=== PATIENT | male | born 1975 | race Caucasian/White ===

== ENCOUNTER 2016-11-01 19:11 | Emergency (ER) | payer SELFPAY ==
--- NOTE | 2016-11-01 19:24 | Emergency Department Record ---
History of Present Illness - General Chief complaint: Edema Stated complaint: LEFT HAND SWOLLEN Time Seen by Provider: 11/01/16 19:22 Source: Patient Mode of Arrival: Ambulatory Limitations: No limitations - History of Present Illness Initial comments: 41 yo male presents to ED with a CC of redness and swelling to the dorsum of the left hand for the past several days. Patient denies fevers, chills, or recent illness, but does report decreased appetite. Patient denies cough, abdominal pain, nausea, or vomiting symptoms. Patient denies health problems at his baseline. MD Complaint: Extremity pain, Extremity swelling Onset/Timin -: Days(s) Location: Left, Hand History of Same: No -: Yes Arthralgia Radiation: None Quality: Aching Consistency: Constant Improves with: Nothing Worsens with: Nothing Associated Symptoms: Other (decreased appetite) - Related Data Previous Rx's Medication Instructions Recorded Clindamycin HCl [Cleocin HCl] 300 mg PO QID #40 capsule 11/01/16 Allergies Allergy/AdvReac Type Severity Reaction Status Date / Time No Known Drug Allergies Allergy Verified 06/18/16 08:05 Review of Systems Constitutional: Denies: Chills, Fever, Malaise, Night sweats Eyes: Denies: Eye discharge, Eye pain ENT: Denies: Congestion, Ear pain, Epistaxis Respiratory: Denies: Cough, Dyspnea, Hemoptysis, Stridor Cardiovascular: Denies: Chest pain, Dyspnea on exertion, Palpitations Endocrine: Denies: Fatigue, Heat or cold intolerance Gastrointestinal: Denies: Abdominal pain, Nausea, Vomiting Genitourinary: Denies: Incontinence, Retention Musculoskeletal: Reports: Arthralgia. Denies: Back pain, Gout, Joint swelling Skin: Reports: Change in color (redness). Denies: Bruising, Change in hair/ nails, Rash Neurological: Denies: Abnormal gait, Confusion, Headache, Seizure Psychiatric: Denies: Anxiety Hematological/Lymphatic: Denies: Anemia, Blood Clots Past Medical History - SOCIAL HISTORY Smoking Status: Never smoker Drug Use: None - RESPIRATORY Hx Respiratory Disorders: No - CARDIOVASCULAR Hx Cardio Disorders: No - NEURO Hx Neuro Disorders: No - GI Hx GI Disorders: No - Hx Genitourinary Disorders: No - ENDOCRINE Hx Endocrine Disorders: No - MUSCULOSKELETAL Hx Musculoskeletal Disorders: No - PSYCH Hx Psych Problems: No - HEMATOLOGY/ONCOLOGY Hx Hematology/Oncology Disorders: No Family Medical History Hx Cancer: Grandparents Hx Diabetes: Father, Mother Hx Heart Disease: Father Hx Kidney Disease: Father Physical Exam - General General Appearance: Alert, Oriented x3, Cooperative, No acute distress Limitations: No limitations - Head Head exam: Atraumatic, Normocephalic, Normal inspection Head exam detail: negative: Abrasion, Contusion, Isidro's sign, General tenderness, Hematoma, Laceration - Eye Eye exam: Normal appearance. negative: Conjunctival injection, Periorbital swelling, Periorbital tenderness, Scleral icterus - ENT Ear exam: negative: Auricular hematoma, Auricular trauma Nasal Exam: negative: Active bleeding, Discharge, Dried blood, Foreign body Mouth exam: negative: Drooling, Laceration, Muffled voice, Tongue elevation - Neck Neck exam: Normal inspection. negative: Meningismus, Tenderness - Respiratory Respiratory exam: Normal lung sounds bilaterally. negative: Rales, Respiratory distress, Rhonchi, Stridor - Cardiovascular Cardiovascular Exam: Regular rate, Normal rhythm, Normal heart sounds - GI/Abdominal GI/Abdominal exam: Soft. negative: Rebound, Rigid, Tenderness - Rectal Rectal exam: Deferred - exam: Deferred - Extremities Extremities exam: Tenderness, Other (Mild TTP and erythema to the dorsal aspect of the left hand, warm to palpation, no fluctuation or induration present, no evidence for abscess.). negative: Calf tenderness, Pedal edema - Back Back exam: Denies: CVA tenderness (R), CVA tenderness (L), Rash noted - Neurological Neurological exam: Alert, Normal gait, Oriented X3 - Psychiatric Psychiatric exam: Normal affect, Normal mood - Skin Skin exam: Erythema. negative: Abrasion Type of lesion: negative: abrasion Course Vital Signs 11/01/16 19:17 Temperature 99.3 F Pulse Rate [ 121 H Pulse Ox Probe] Respiratory 20 Rate Blood Pressure 130/84 [Right Arm] Pulse Ox 95 - Reevaluation(s) Reevaluation #1: 11/01/16 19:29 Symptoms appear c/w mild cellulitis, will treat for 10 days with Clindamycin. Repeat pulse 108 prior to discharge. Patient appears stable for outpatient treatment at this time. 11/01/16 20:39 Disposition Disposition: Discharge Clinical Impression: Cellulitis of left hand Disposition: Home, Self-Care Condition: (2) Stable Instructions: Cellulitis (ED) Additional Instructions: Return to ED if your symptoms worsen or if you have any concerns. Clindamycin as directed. Follow-up with your family doctor in 3-5 days to ensure your hand infection is improving. Prescriptions: Clindamycin HCl [Cleocin HCl] 300 mg PO QID #40 capsule Forms: Patient Portal Access Time of Disposition: 19:23
[2016-11-01] MEDS ORDERED: CLINDAMYCIN 150 MG CAP PO ONE (19:46)
== END 2016-11-01 19:48 | disposition home or self-care (01) ==
LOC: ER 19:11
DX: L03.114 Cellulitis of left upper limb (principal)
CPT/HCPCS: 99282

== ENCOUNTER 2017-03-30 14:11 | Emergency (ER) | payer SELFPAY ==
--- NOTE | 2017-03-30 14:38 | Emergency Department Record ---
History of Present Illness - General Chief complaint: Extremity Problem Stated complaint: RT FOREARM SWELLING Time Seen by Provider: 03/30/17 14:27 Source: Patient Mode of Arrival: Ambulatory Limitations: No limitations - History of Present Illness Initial comments: The patient is here due to a possible R forearm infection which has been present for 3-4 days. He had a pimple to the area and tried to pop it and now the area is swollen and tender. 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 He also states he did hit the area at work and it could be a bad bruise from the trauma also. MD Complaint: Extremity pain, Extremity swelling Onset/Timin -: Days(s) Location: Right, Forearm History of Same: Yes Radiation: Distal Severity scale (1-10): 5 Quality: Aching Consistency: Constant Improves with: Nothing Worsens with: Nothing Associated Symptoms: Denies other symptoms - Related Data Previous Rx's Medication Instructions Recorded Cephalexin [Keflex] 500 mg PO QID #28 cap 03/30/17 Sulfamethoxazole/Trimethoprim 1 tab PO BID #14 tab 03/30/17 [Bactrim Ds] Allergies Allergy/AdvReac Type Severity Reaction Status Date / Time No Known Drug Allergies Allergy Verified 03/30/17 14:25 Travel Screening - Travel/Exposure Within Last 30 Days Have you traveled within the last 30 days?: No Past Medical History - SOCIAL HISTORY Smoking Status: Never smoker Alcohol Use: Rare Drug Use: None - RESPIRATORY Hx Respiratory Disorders: No - CARDIOVASCULAR Hx Cardio Disorders: No - NEURO Hx Neuro Disorders: No - GI Hx GI Disorders: No - Hx Genitourinary Disorders: No - ENDOCRINE Hx Endocrine Disorders: No - MUSCULOSKELETAL Hx Musculoskeletal Disorders: No - PSYCH Hx Psych Problems: No - HEMATOLOGY/ONCOLOGY Hx Hematology/Oncology Disorders: No Family Medical History Any Significant Family History?: Yes Hx Cancer: Grandparents Hx Diabetes: Father, Mother Hx Heart Disease: Father Hx Kidney Disease: Father Physical Exam - General General Appearance: Alert, Cooperative, No acute distress - Head Head exam: Atraumatic, Normocephalic - Extremities Extremities exam: Full ROM, Tenderness (There is tenderness over the swollen area only.), Other (The R arm is NVI.). negative: Normal inspection (There is a 3x3 circular area of swelling to the R forearm. There is no surrounding cellulitis. The area is very minimally warm with very minimal erythema present.) Image of Full Body: 1 - 3x3 cm area of abscess. Course Vital Signs 03/30/17 14:19 Temperature 97.8 F Pulse Rate 108 H Respiratory 20 Rate Blood Pressure 156/94 Pulse Ox 99 - Reevaluation(s) Reevaluation #1: I discussed watching the area and using warm compresses on it with oral Abx's but the patient was adamant that I try to open up the area. Due to that fact I did attempt to open the area. Procedure note: The area was cleansed with betadine and anesth. with 5 cc's Lido 1%. The midpoint of the swelling was incised with a # 11 blade but no purulence was expressed. The area was then probed with sterile forceps and no abscess cavity was found. 03/30/17 15:21 03/30/17 15:59 Reevaluation #2: The lab work and xrays are all neg. I believe the swelling could just be due to a hematoma but due to the confusing nature of the problem will place the patient on oral Abx's. 03/30/17 16:00 Medical Decision Making - Data Complexity MDM Data: Labs Ordered and/or Reviewed, X-Ray Ordered and/or Reviewed - Lab Data Result diagrams: 03/30/17 15:20 03/30/17 15:20 - Radiology Data Radiology results: Report reviewed (R forearm: Soft tissue swelling. No gas or foreign body.) Disposition Disposition: Discharge Clinical Impression: Forearm swelling Disposition: Home, Self-Care Condition: (1) Good Instructions: Hematoma (ED) Additional Instructions: Please use OTC pain medicines as needed and keep the area dressed until healed. Use ice to the area when possible while awake. Please take the Keflex and Bactrim as directed. Follow up with your PCP if not healed in 3 days and return to the ER for any increased swelling, fever, increased pain or redness. Prescriptions: Cephalexin [Keflex] 500 mg PO QID #28 cap Sulfamethoxazole/Trimethoprim [Bactrim Ds] 1 tab PO BID #14 tab Forms: Patient Portal Access Time of Disposition: 16:03 Quality - Quality Measures Quality Measures: N/A - Blood Pressure Screening View Details: Yes Does Patient Have Any of the Following: No Blood Pressure Classification: Hypertensive Reading Systolic Measurement: 137 Diastolic Measurement: 92 Screening for High Blood Pressure: < Pre-Hypertensive BP, F/U Documented > [ G8950] Pre-Hypertensive Follow-up Interventions: Referral to alternative/primary care provider.
[2017-03-30] MEDS ORDERED: CLINDAMYCIN 150 MG CAP PO ONE (15:23)
[2017-03-30 15:32] LABS: BASO % 0.6 % (0-6); EOS % 3.3 % (0-6); GRAN % 42.2 % (47-80); HEMATOCRIT 39.8 % (42.0-52.0); HEMOGLOBIN 13.4 gm/dl (14.0-18.0); LYMPH % 43.3 % (16-45); MEAN CELL VOLUME 88.6 fl (81-97); MEAN CORPUSCULAR HEMOGLOBIN 29.8 pg (27-33); MEAN CORPUSCULAR HGB CONC 33.7 g/dl (32-36); MEAN PLATELET VOLUME 8.9 fl (7.4-10.4); MONO % 10.6 % (0-9); PLATELET COUNT 306 K/uL (130-400); RED BLOOD COUNT 4.49 M/uL (4.40-5.70); RED CELL DISTRIBUTION WIDTH 13.4 % (11.5-14.5); WHITE BLOOD COUNT W/O DIFF 7.2 K/uL (4.2-12.2)
[2017-03-30 15:44] LABS: BLOOD UREA NITROGEN 10 mg/dL (9-20); C-REACTIVE PROTEIN 0.9 mg/dL (0.0-0.9); CREATININE 1.2 mg/dL (0.66-1.25); EST GLOMERULAR FILTRATION RATE > 60 ml/min; GLUCOSE,RANDOM 116 mg/dL (70-110)
--- NOTE | 2017-03-31 07:42 | RADIOLOGY REPORT ---
EXAM: RIGHT FOREARM, AP AND LATERAL VIEWS HISTORY: SWELLING IN RIGHT FOREARM AT SITE OF PREVIOUS FLUID FILLED BUMP WHICH PATIENT "POPPED". TECHNIQUE: AP and lateral views of the right forearm were obtained. Comparison: Three views of the right hand dated 10/15/15. Encounter: Initial. FINDINGS: There is normal bone mineralization. No acute fracture, dislocation , or destructive bone lesion is seen. There are degenerative changes of the elbow most pronounced in the medial compartment where they are moderate in degree. The articular relations are otherwise maintained. No anterior nor posterior fat pad sign. There is anterior soft tissue swelling proximally. No foreign body nor subcutaneous emphysema. IMPRESSION: 1. NO ACUTE BONE NOR JOINT ABNORMALITY. 2. DEGENERATIVE CHANGES OF THE RIGHT ELBOW. 3. FOCAL SOFT TISSUE SWELLING ANTERIORLY AND PROXIMALLY WITHOUT EVIDENCE OF FOREIGN BODY OR SUBCUTANEOUS EMPHYSEMA. JOB NUMBER: [id number] MTDD
== END 2017-03-30 16:12 | disposition home or self-care (01) ==
LOC: ER 14:11
DX: R22.31 Localized swelling, mass and lump, right upper limb (principal)
CPT/HCPCS: 10060; 80048; 85025; 86140; 99283

== ENCOUNTER 2017-12-31 23:46 | Emergency (ER) | payer SELFPAY ==
[2018-01-01] MEDS ORDERED: CLINDAMYCIN 600MG/50ML PREMIX 600 MG/50 ML BAG IVPB ONE (00:06)
--- NOTE | 2018-01-01 00:10 | Emergency Department Record ---
History of Present Illness - General Chief complaint: Abscess Stated complaint: ABSCESS Time Seen by Provider: 12/31/17 23:53 Source: Patient Mode of Arrival: Ambulatory Limitations: No limitations - History of Present Illness Initial comments: The patient is here due to a L forearm rash, swelling, and pain for 5 days. He did get a tattoo over that area about 2 weeks ago. The patient first had areas of pustules to the forearm and now one of them has become more swollen and is draining. There is a mild red streak up the forearm to the elbow. The patient does have a hx of MRSA a couple of years ago. MD complaint: Abscess/boil, Rash Onset/Timin -: Days(s) Hx Tetanus Toxoid Vaccination: Yes Year of Tetanus Vaccination: 2010 [place] [facility] [place]ity scale (1-10): 6 Quality: Other Consistency: Constant Improves with: Rest Worsens with: Palpation Context: None Treatments Prior to Arrival: Attempted to drain pus at home, OTC topical medication - Related Data Previous Rx's Medication Instructions Recorded Clindamycin HCl [Cleocin HCl] 300 mg PO QID #28 capsule 01/01/18 Allergies Allergy/AdvReac Type Severity Reaction Status Date / Time No Known Drug Allergies Allergy Verified 03/30/17 14:25 Travel Screening - Travel/Exposure Within Last 30 Days Have you traveled within the last 30 days?: No - Travel Symptoms Symptom Screening: None Review of Systems Constitutional: Denies: Chills, Fever Eyes: Denies: Eye discharge Past Medical History - SOCIAL HISTORY Smoking Status: Never smoker - RESPIRATORY Hx Respiratory Disorders: No - CARDIOVASCULAR Hx Cardio Disorders: No - NEURO Hx Neuro Disorders: No - GI Hx GI Disorders: No - Hx Genitourinary Disorders: No - ENDOCRINE Hx Endocrine Disorders: No - MUSCULOSKELETAL Hx Musculoskeletal Disorders: No - PSYCH Hx Psych Problems: No - HEMATOLOGY/ONCOLOGY Hx Hematology/Oncology Disorders: No Family Medical History Any Significant Family History?: Yes Hx Cancer: Grandparents Hx Diabetes: Father, Mother Hx Heart Disease: Father Hx Kidney Disease: Father Physical Exam - General General Appearance: Alert, Oriented x3, Cooperative, No acute distress - Head Head exam: Atraumatic, Normocephalic, Normal inspection - Eye Eye exam: Normal appearance, PERRL - Neck Neck exam: Normal inspection, Full ROM. negative: Tenderness - Respiratory Respiratory exam: Normal lung sounds bilaterally. negative: Respiratory distress - Cardiovascular Cardiovascular Exam: Regular rate, Normal rhythm, Normal heart sounds - Extremities Extremities exam: negative: Normal inspection (There is an area of slight swelling and erythema to the medial distal forearm. There is a central lesion that is draining a small amount of purulent material. There is no fluctuance or palpable abscess. ) Image of Full Body: 1 - Area of erythema, warmth and tenderness. - Neurological Neurological exam: Alert. negative: Motor sensory deficit Course Vital Signs 12/31/17 23:51 Temperature 98.3 F Pulse Rate [ 97 H Pulse Ox Probe] Respiratory 20 Rate Blood Pressure 145/94 [Right Arm] Pulse Ox 100 Disposition Disposition: Discharge Clinical Impression: Cellulitis of arm, left Disposition: Home, Self-Care Condition: (2) Stable Instructions: Cellulitis (ED) Additional Instructions: PLease continue the Clindamycin and use warm compresses to the area. Take Tylenol or Motrin for pain. Please see your family doctor next week for recheck. Return to the ER for any worsening symptoms, pain, redness, or swelling. Prescriptions: Clindamycin HCl [Cleocin HCl] 300 mg PO QID #28 capsule Forms: Patient Portal Access Time of Disposition: 00:11 Quality - Quality Measures Quality Measures: N/A - Blood Pressure Screening View Details: Yes Does Patient Have Any of the Following: No Blood Pressure Classification: Pre-Hypertensive BP Reading Systolic Measurement: 133 Diastolic Measurement: 81 Screening for High Blood Pressure: < Pre-Hypertensive BP, F/U Documented > [ G8950] Pre-Hypertensive Follow-up Interventions: Referral to alternative/primary care provider.
[2018-01-01] MEDS ORDERED: IBUPROFEN 600 MG TABLET PO ONE (00:11)
== END 2018-01-01 01:01 | disposition home or self-care (01) ==
LOC: ER 23:46
DX: L03.114 Cellulitis of left upper limb (principal)
CPT/HCPCS: 96365; 99284

== ENCOUNTER 2018-12-20 06:27 | Emergency (ER) | payer SELFPAY ==
--- NOTE | 2018-12-20 06:47 | Emergency Department Record ---
History of Present Illness - General Chief complaint: Extremity Problem Stated complaint: LEFT WRIST PAIN Time Seen by Provider: 12/20/18 06:41 Source: Patient Mode of Arrival: Ambulatory Limitations: No limitations - History of Present Illness Initial comments: 43 yo male presents to ED for evaluation of left wrist pain for the past 3 weeks, denies recent injury. Patient reports previous fracture to the left wrist as a child with "chips of bone removed", denies history of hardware placement/removal. Patient denies fevers, chills, or redness to the affected wrist. Patient reports taking ibuprofen for his symptoms with little improvement. Patient also reports that he is concerned about possible GOUT. MD Complaint: Joint pain Onset/Timin -: Week(s) Location: Left, Other History of Same: No Severity scale (1-10): 8 Quality: Aching Consistency: Constant Improves with: Nothing Worsens with: Palpation, Other Associated Symptoms: Denies other symptoms - Related Data Allergies Allergy/AdvReac Type Severity Reaction Status Date / Time No Known Drug Allergies Allergy Verified 03/30/17 14:25 Travel Screening - Travel/Exposure Within Last 30 Days Have you traveled within the last 30 days?: No Review of Systems Constitutional: Denies: Chills, Fever, Malaise, Night sweats Eyes: Denies: Eye discharge, Eye pain ENT: Denies: Congestion, Ear pain, Epistaxis Respiratory: Denies: Cough, Dyspnea Cardiovascular: Denies: Chest pain, Dyspnea on exertion Endocrine: Denies: Fatigue, Heat or cold intolerance Gastrointestinal: Denies: Abdominal pain, Nausea, Vomiting Genitourinary: Denies: Incontinence, Retention Musculoskeletal: Reports: Arthralgia. Denies: Back pain, Joint swelling Skin: Denies: Bruising, Change in color Neurological: Denies: Abnormal gait, Confusion, Headache, Seizure Psychiatric: Denies: Anxiety Hematological/Lymphatic: Denies: Anemia, Blood Clots Past Medical History - SOCIAL HISTORY Smoking Status: Never smoker Alcohol Use: None Drug Use: None - RESPIRATORY Hx Respiratory Disorders: No - CARDIOVASCULAR Hx Cardio Disorders: No - NEURO Hx Neuro Disorders: No - GI Hx GI Disorders: No - Hx Genitourinary Disorders: No - ENDOCRINE Hx Endocrine Disorders: No - MUSCULOSKELETAL Hx Musculoskeletal Disorders: No - PSYCH Hx Psych Problems: No - HEMATOLOGY/ONCOLOGY Hx Hematology/Oncology Disorders: No Family Medical History Any Significant Family History?: Yes Hx Cancer: Grandparents Hx Diabetes: Father, Mother Hx Heart Disease: Father Hx Kidney Disease: Father Physical Exam - General General Appearance: Alert, Oriented x3, Cooperative, Mild distress Limitations: No limitations - Head Head exam: Atraumatic, Normocephalic, Normal inspection Head exam detail: negative: Abrasion, Contusion, Isidro's sign, General tenderness, Hematoma, Laceration - Eye Eye exam: Normal appearance. negative: Conjunctival injection, Periorbital swelling, Periorbital tenderness, Scleral icterus - ENT Ear exam: negative: Auricular hematoma, Auricular trauma Nasal Exam: negative: Active bleeding, Discharge, Dried blood, Foreign body Mouth exam: negative: Drooling, Laceration, Muffled voice, Tongue elevation - Neck Neck exam: Normal inspection. negative: Meningismus, Tenderness - Respiratory Respiratory exam: Normal lung sounds bilaterally. negative: Rales, Respiratory distress, Rhonchi, Stridor - Cardiovascular Cardiovascular Exam: Regular rate, Normal rhythm, Normal heart sounds Peripheral Pulses: 3+: Radial (L) - GI/Abdominal GI/Abdominal exam: Soft. negative: Rebound, Rigid, Tenderness - Rectal Rectal exam: Deferred - exam: Deferred - Extremities Extremities exam: Tenderness, Other (Mild TTP over the fascia retinaculum of the left wrist, no erythema or clinial signs of infection, strong distal radial pulse, compartments of the left forearm are soft on examination.). negative: Calf tenderness, Pedal edema - Back Back exam: Denies: CVA tenderness (R), CVA tenderness (L) - Neurological Neurological exam: Alert, Normal gait, Oriented X3 - Psychiatric Psychiatric exam: Normal affect, Normal mood - Skin Skin exam: Normal color. negative: Abrasion Type of lesion: negative: abrasion Course Vital Signs 12/20/18 06:31 Temperature 98.0 F Pulse Rate 87 Respiratory 20 Rate Blood Pressure 159/100 Pulse Ox 100 - Reevaluation(s) Reevaluation #1: 12/20/18 06:52 Left wrist: Mild STS present Mild degenerative changes No acute process Patient was updated on his radiograph results, will place in velcro wrist splint Symptomatic care including Ibuprofen, ice were given as well for possible CTS Patient was instructed to follow-up with his PCP for further testing for possible CTS as well. Disposition Disposition: Discharge Clinical Impression: Wrist pain, left Disposition: Home, Self-Care Condition: (2) Stable Instructions: Wrist Injury (ED) Additional Instructions: Return to ED if your symptoms worsen or if you have any concerns. Ibuprofen, ice, wrist splint as directed. Follow-up with your family doctor in 3-5 days as directed for further evaluation for possible carpal tunnel syndrome. Forms: Patient Portal Access Time of Disposition: 06:47 Quality - Quality Measures Quality Measures: N/A - Blood Pressure Screening Does Patient Have Any of the Following: No Blood Pressure Classification: Hypertensive Reading Systolic Measurement: 159 Diastolic Measurement: 100 Screening for High Blood Pressure: < First Hypertensive BP, F/U Documented > [G8950] First Hypertensive Follow-up Interventions: Referral to alternative/primary care provider.
--- NOTE | 2018-12-22 10:06 | RADIOLOGY REPORT ---
EXAM: LEFT WRIST HISTORY: LEFT WRIST PAIN, NO KNOWN INJURY. TECHNIQUE: Three views of the left wrist were obtained. Comparison: No prior left hand or wrist series with which to compare. FINDINGS: There is probably some mild diffuse soft tissue swelling about the wrist. No definite bony abnormality of the left wrist identified, however, if wrist symptoms persist, follow-up MRI of the left wrist may be useful for further evaluation if not contraindicated. IMPRESSION: 1. SOME SOFT TISSUE SWELLING ABOUT THE WRIST. 2. NO DEFINITE BONY ABNORMALITY OF THE LEFT WRIST IDENTIFIED. JOB NUMBER: [id number] [facility]
== END 2018-12-20 07:04 | disposition home or self-care (01) ==
LOC: ER 06:27
DX: M25.532 Pain in left wrist (principal)
CPT/HCPCS: 99283